=== PATIENT | male | born 1965 | race Caucasian/White ===

== ENCOUNTER → 2021-07-07 | Outpatient (CLI) | payer OTHER ==
[~2021-07-07] MED LIST: ALEVE220 MG PO; ASA81BEC PO; CARBIDOPA-LEVO1 EAC5; CLONAZEPAM 0.50.5 M1; FLEXERIL PO; GLUCOTROL XL10 MG PO; LIPITOR20 MG PO; METFORMIN HCL500 M3 PO; MOBIC7.5 MG PO; OZEMPIC0.25 MG/0. SUBQ; RASAGILINE MESYL1 MG PO; SEROQUEL 50 MG50 M1 PO; SILDENAFIL20 MG PO; VOLTAREN ARTHRI20 GM; ZYRTEC10 M4 PO
== END ==
LOC: M.PC 09:19
PROVIDERS: ATTEND Physical Medicine & Rehabilitation
DX: M16.11 Unilateral primary osteoarthritis, right hip (principal); M25.561 Pain in right knee; Z79.899 Other long term (current) drug therapy; Z79.891 Long term (current) use of opiate analgesic

== ENCOUNTER → 2021-08-11 | Outpatient (CLI) | payer OTHER | END | disposition home or self-care (01) | LOC: M.PC 10:00 | PROVIDERS: ATTEND Physical Medicine & Rehabilitation | DX: M25.561 Pain in right knee (principal); M17.11 Unilateral primary osteoarthritis, right knee; M23.361 Other meniscus derangements, other lateral meniscus, right knee; M23.331 Other meniscus derangements, other medial meniscus, right knee; E11.9 Type 2 diabetes mellitus without complications; E78.5 Hyperlipidemia, unspecified; G20 Parkinson's disease; Z98.890 Other specified postprocedural states; Z79.899 Other long term (current) drug therapy; Z79.82 Long term (current) use of aspirin ==

== ENCOUNTER → 2021-08-20 | Outpatient (CLI) | payer OTHER | LOC: M.LAB 12:33 | PROVIDERS: ATTEND Physical Medicine & Rehabilitation | DX: Z01.812 Encounter for preprocedural laboratory examination (principal); Z20.822 Contact with and (suspected) exposure to COVID-19 ==